=== PATIENT | female | born 1980 | race Caucasian/White ===

== ENCOUNTER 2017-09-17 16:04 | Emergency (ER) | payer MEDICAID ==
[~2017-09-17] VITALS: Ht 154.9 cm; Wt 129.3 kg
[2017-09-17 17:27] LABS: BASOPHIL % 0.3 % (0-2); PLATELET COUNT 270 x10^3mcL (130-400); RED CELL DISTRIBUTION WIDTH 13.7 % (11.5-14.5)
[2017-09-17 17:36] LABS: CALCIUM 9.1 mg/dL (8.5-10.1); CARBON DIOXIDE 23.9 mmol/L (21-32); CHLORIDE SERUM 103 mmol/L (98-107); CREATININE SERUM 0.5 mg/dL (0.6-1.0); GFR1 > 60 mL/min; GLUCOSE SERUM 101 mg/dL (74-106); SODIUM SERUM 138 mmol/L (136-145)
[2017-09-17 17:48] LABS: ALKALINE PHOSPHATASE 67 U/L (46-116); ALT/SGPT 35 U/L (14-59); AMYLASE 29 U/L (25-115); AST/SGOT 24 U/L (15-37); BILIRUBIN TOTAL 0.21 mg/dL (0.20-1.00); LIPASE 118 IU/L (73-393); TOTAL PROTEIN, SERUM 7.3 g/dL (6.4-8.2)
[2017-09-17 17:54] LABS: ALBUMIN 2.8 g/dL (3.4-5.0); CHOLESTEROL 223 mg/dL (<200); T4(THYROXINE) 14.8 ug/dL (4.7-13.3)
[2017-09-17 18:15] LABS: UA SPECIFIC GRAVITY >=1.030 (1.005-1.035); microscopic required? YES; urine erythrocyte NEGATIVE (NEGATIVE)
[2017-09-17 18:31] LABS: AMPHETAMINE QUAL UR NONE DETECTED (NEG <=1000)
[2017-09-17 19:16] VITALS: BP 137/88
== END 2017-09-17 19:16 | disposition home or self-care (01) ==
LOC: ED 16:04
PROVIDERS: Emergency Medicine
DX: O26.893 Other specified pregnancy related conditions, third trimester (principal); R07.89 Other chest pain; I10 Essential (primary) hypertension; E66.01 Morbid (severe) obesity due to excess calories; Z3A.00 Weeks of gestation of pregnancy not specified
CPT/HCPCS: 36415; 83880

== ENCOUNTER 2019-06-17 22:22 | Emergency (ER) | payer MEDICAID ==
[~2019-06-17] VITALS: Ht 154.9 cm; Wt 130.6 kg
[2019-06-17 22:52] VITALS: Ht 154.9 cm; Wt 130.6 kg
[2019-06-18 03:07] LABS: BASOPHIL % 0.1 % (0-2); PLATELET COUNT 263 x10^3mcL (130-400); RED CELL DISTRIBUTION WIDTH 13.5 % (11.5-14.5)
[2019-06-18 03:54] LABS: CALCIUM 8.8 mg/dL (8.5-10.1); CARBON DIOXIDE 27.6 mmol/L (21-32); CHLORIDE SERUM 96 mmol/L (98-107); CREATININE SERUM 0.7 mg/dL (0.6-1.0); GFR1 > 60 mL/min; GLUCOSE SERUM 127 mg/dL (74-106); POTASSIUM SERUM 3.1 mmol/L (3.5-5.1); SODIUM SERUM 132 mmol/L (136-145)
[2019-06-18 03:57] VITALS: BP 104/49
== END 2019-06-18 03:57 | disposition home or self-care (01) ==
LOC: ED 22:22
PROVIDERS: Emergency Medicine
DX: R19.7 Diarrhea, unspecified (principal); R10.32 Left lower quadrant pain; R51 Headache; I10 Essential (primary) hypertension
CPT/HCPCS: 36415; Q0162